=== PATIENT | female | born 1970 | race Caucasian/White ===

== ENCOUNTER 2021-05-25 15:03 | Emergency (ER) | payer OTHER ==
[~2021-05-25] VITALS: Ht 152.4 cm; Wt 56.7 kg
[2021-05-25 16:16] LABS: BASOPHILS % 0.4 % (0.0-1.0); EOSINOPHILS # (AUTO) 0.1 (0.0-0.4); HEMATOCRIT 36.1 % (34.2-44.1); HEMOGLOBIN 11.8 g/dL (12.0-16.0); LYMPHOCYTES # (AUTO) 1.6 (1.0-3.2); MEAN CORPUSCULAR HEMOGLOBIN 31.5 pg (28-32); MEAN CORPUSCULAR HGB CONC 32.7 g/dL (31-35); MEAN CORPUSCULAR VOLUME 96.3 fL (81-99); MONOCYTES # (AUTO) 0.4 (0.2-0.8); MONOCYTES % 9.6 % (4.4-11.3); NEUTROPHILS # (AUTO) 2.4 (2.1-6.9); NEUTROPHILS % 51.8 % (38.7-80.0); PLATELET COUNT 267 x10e3/uL (140-360); RED BLOOD COUNT 3.75 x10e6/uL (3.6-5.1); RED CELL DISTRIBUTION WIDTH 12.5 % (11.7-14.4)
[2021-05-25 16:36] LABS: LIPASE 8 U/L (8-78)
[2021-05-25 16:37] LABS: ALBUMIN 4.1 g/dL (3.5-5.0); ALBUMIN/GLOBULIN RATIO 1.5 (0.8-2.0); ANION GAP 14.7 mmol/L (8-16); CALCIUM 9.6 mg/dL (8.4-10.2); CREATININE, SERUM 0.75 mg/dL (0.57-1.11); POTASSIUM 3.7 mmol/L (3.5-5.1)
== END 2021-05-25 17:39 | disposition home or self-care (01) ==
LOC: ER 15:15
DX: U07.1 COVID-19 (principal); R10.13 Epigastric pain
CPT/HCPCS: 36415; 71045; 74177; 80053; 83690; 84484; 84702; 85025; 93005; 99284; U0002

== ENCOUNTER 2022-03-19 19:51 | Emergency (ER) | payer OTHER ==
[~2022-03-19] VITALS: Ht 157.5 cm; Wt 64.0 kg
[2022-03-19] MEDS ORDERED: ONDANSETRON HCL INJ 2MG/ML 2ML 2 MG/ML VIAL IV STA (20:34)
[2022-03-19] MEDS ORDERED: KETOROLAC TROMETHAMINE 30 MG/ML VIAL IV STA (20:34)
[2022-03-19] MEDS ORDERED: Morphine 2mg Syringe 2 MG/ML SYR IV ONE (20:45)
[2022-03-19] MEDS ORDERED: ONDANSETRON ODT4 MG PO (21:56)
[2022-03-19] MEDS ORDERED: DICYCLOMINE HCL10 MG PO (21:56)
[2022-03-19 22:05] VITALS: BP 142/86
== END 2022-03-19 22:05 | disposition home or self-care (01) ==
LOC: FSED 20:14
DX: R10.33 Periumbilical pain (principal); M54.50 Low back pain, unspecified; E03.9 Hypothyroidism, unspecified
CPT/HCPCS: 74176; 80048; 80076; 81003; 85025; 99284

== ENCOUNTER 2024-01-14 07:55 | Emergency (ER) | payer OTHER ==
[~2024-01-14] VITALS: Ht 157.5 cm; Wt 72.6 kg
[~2024-01-14 07:55] MED LIST: DICYCLOMINE HCL10 MG PO; ONDANSETRON ODT4 MG PO
[2024-01-14 08:01] VITALS: PULSE 87; RESP 18; TEMP 98.5; O2SAT 99
[2024-01-14] MEDS ORDERED: DEXAMETHASONE SOD PHOS 10 MG/1 ML VIAL IM ONE (08:30)
[2024-01-14] MEDS ORDERED: CYCLOBENZAPRINE5 MG PO (08:35)
[2024-01-14] MEDS: DEXAMETHASONE SOD PHOS INJ 4 MG/ML SDV IM ONE (08:55)
[2024-01-14] MEDS: KETOROLAC TROMETHAMINE 60 MG/2 ML VIAL IM ONE (08:56)
== END 2024-01-14 09:00 | disposition home or self-care (01) ==
LOC: FSED 07:59
DX: M54.42 Lumbago with sciatica, left side (principal); E03.9 Hypothyroidism, unspecified; G89.29 Other chronic pain
CPT/HCPCS: 81003; 99282; J1100; J1885